=== PATIENT | female | born 1950 | race African-American/Black ===

== ENCOUNTER 2017-11-17 14:39 | Emergency (ER) | payer OTHER ==
[~2017-11-17] VITALS: Ht 144.8 cm; Wt 68.6 kg
[~2017-11-17 14:39] MED LIST: ACID CONTROLLER20 MG PO; ALEVE220 MG PO; APRESOLINE25 MG PO; ATIVAN2 MG PO; BACLOFEN PUMP; CHEWABLE-VITE1 EACH PO; FORTEO20 MICROGR SC; GRALISE600 MG PO; MORPHINE PUMP; NEURONTIN600 MG PO; NORCO 5/3251 TABLET PO; OXYCODONE HCL5 MG PO; PREDNISONE5 MG PO; PRILOSEC20 MG PO; TIZANIDINE HCL2 MG PO; ZANAFLEX2 M1 PO
[2017-11-17] MEDS ORDERED: FLEXERIL10 MG PO (16:37)
[2017-11-17 17:22] VITALS: BP 142/99
== END 2017-11-17 17:22 | disposition home or self-care (01) ==
LOC: EME 14:39
DX: M62.830 Muscle spasm of back (principal); G89.29 Other chronic pain; M54.5 Low back pain; I10 Essential (primary) hypertension; I25.2 Old myocardial infarction; K21.9 Gastro-esophageal reflux disease without esophagitis; Z88.5 Allergy status to narcotic agent; F17.200 Nicotine dependence, unspecified, uncomplicated; Z79.891 Long term (current) use of opiate analgesic
CPT/HCPCS: 99281; 99284; J1885